=== PATIENT | male | born 1965 | race African-American/Black ===

== ENCOUNTER 2017-06-25 14:01 | Inpatient (IN) | payer OTHER ==
[~2017-06-25] VITALS: Ht 182.9 cm; Wt 118.0 kg
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
[2017-06-25] MEDS ORDERED: hydrALAzine 20 MG INJ IV ONE (16:00)
[2017-06-25 16:26] LABS: BASOPHIL # 0.1 10^3/ul (0.0-0.1); BASOPHILS % 0.4 % (0.0-2.0); EOSINOPHILS # 0.2 10^3/ul (0.0-0.5); EOSINOPHILS % 1.1 % (0.0-7.0); HEMATOCRIT 45.2 % (42.0-52.0); HEMOGLOBIN 15.9 g/dl (14.0-18.0); LYMPHOCYTES # 1.2 10^3/ul (0.8-2.9); LYMPHOCYTES % 8.8 % (15.0-51.0); MEAN CORPUSCULAR HEMOGLOBIN 30.3 pg (29.0-33.0); MEAN CORPUSCULAR HGB CONC 35.2 g/dl (32.0-37.0); MEAN CORPUSCULAR VOLUME 86.1 fl (82.0-101.0); MEAN PLATELET VOLUME 11.1 fl (7.4-10.4); MONOCYTE # 0.7 10^3/ul (0.3-0.9); MONOCYTES % 5.2 % (0.0-11.0); NEUTROPHIL # 11.8 10^3/ul (1.6-7.5); PLATELET COUNT 305 10^3/UL (140-415); RED BLOOD COUNT 5.25 10^6/ul (4.70-6.10); RED CELL DISTRIBUTION WIDTH 12.9 % (11.5-14.5); WHITE BLOOD COUNT 14.1 10^3/ul (4.8-10.8)
[2017-06-25 16:42] LABS: CALCIUM 9.4 mg/dl (8.4-10.2); CREATININE 1.72 mg/dl (0.61-1.24); POTASSIUM 4.2 mmol/L (3.5-5.1)
[2017-06-25 16:54] LABS: TROPONIN-I 0.089 ng/ml (0.00-0.12)
[2017-06-25] MEDS ORDERED: NICARDipine HCL 30 MG CAPSULE PO ONE (17:30)
[2017-06-25] MEDS ORDERED: HYDR25TA6 PO (17:57)
[2017-06-25] MEDS ORDERED: ACETAMINOPHEN 325 MG TAB PO PRN ×2 (19:30→22:30)
[2017-06-25] MEDS ORDERED: ONDANSETRON 4 MG INJ IV PRN ×2 (19:30→22:30)
[2017-06-25] MEDS ORDERED: LORAZEPAM 2 MG INJ IV ONE (19:30)
[2017-06-25 20:01] LABS: AADO2 Arterial 45.5 mmHg (7.0-24.0); Allen Test ACCEPTAB; Arterial Base Excess -0.8 mmol/L (-3.0-3); Arterial COHb 0.3 % (0.0-3.0); Arterial Fraction of Oxyhgb 97.6 % (93.0-99.0); Arterial HCO3 21.3 mmol/L (22.0-26.0); Arterial MetHb 0.2 % (0.0-1.5); Arterial Total Hemglobin 17.2 g/dl (12.0-18.0); MODE NASAL CANNULA
[2017-06-25] MEDS ORDERED: ONDANSETRON 4 MG INJ IV STA (21:12)
[2017-06-25] MEDS ORDERED: LABETALOL HCL 20MG INJ IV ONE (21:30)
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
[2017-06-25] MEDS ORDERED: DOCUSATE SODIUM 100 MG CAP PO PRN (22:30)
[2017-06-25] MEDS ORDERED: BISACODYL (EC) 5 MG TAB PO PRN (22:30)
[2017-06-25] MEDS ORDERED: NACL 0.9% 3 ML SYG IV SCH (22:30)
[2017-06-25] MEDS ORDERED: hydrALAzine 20 MG INJ IV PRN (22:30)
[2017-06-26] VITALS (12 sets, daily range): BP systolic 153–168; BP diastolic 94–105; PULSE 84–150; RESP 18–20; TEMP 98; Ht 182.9 cm; Wt 118.0 kg
[2017-06-26] MEDS: SOD CHLORIDE 0.9% 1,000 ML IV SCH ×3 (00:04→14:56)
[2017-06-26 00:15] LABS: ALBUMIN 4.6 g/dl (3.3-4.9); CREATININE 1.76 mg/dl (0.61-1.24); PHOSPHORUS 3.6 mg/dl (2.5-4.9); POTASSIUM 4.3 mmol/L (3.5-5.1)
[2017-06-26] MEDS ORDERED: METOPROLOL 5 MG INJ IV ONE (02:00)
[2017-06-26] MEDS ORDERED: KETOROLAC 30 MG INJ IV STA (04:01)
[2017-06-26] MEDS ORDERED: ALBUTEROL/IPRATROPIUM (NEB) 3 ML AMP HHN PRN (07:30)
[2017-06-26 07:40] LABS: BASOPHILS % 0.3 % (0.0-2.0); EOSINOPHILS # 0.1 10^3/ul (0.0-0.5); HEMATOCRIT 42.3 % (42.0-52.0); HEMOGLOBIN 14.8 g/dl (14.0-18.0); LYMPHOCYTES # 2.1 10^3/ul (0.8-2.9); LYMPHOCYTES % 14.6 % (15.0-51.0); MEAN CORPUSCULAR HEMOGLOBIN 30.2 pg (29.0-33.0); MEAN CORPUSCULAR VOLUME 86.3 fl (82.0-101.0); MEAN PLATELET VOLUME 11.6 fl (7.4-10.4); MONOCYTES % 6.9 % (0.0-11.0); NEUTROPHIL # 11.1 10^3/ul (1.6-7.5); NEUTROPHILS % 76.6 % (39.0-77.0); PLATELET COUNT 287 10^3/UL (140-415); RED CELL DISTRIBUTION WIDTH 13.1 % (11.5-14.5); WHITE BLOOD COUNT 14.4 10^3/ul (4.8-10.8)
[2017-06-26 08:13] LABS: ALBUMIN 4.1 g/dl (3.3-4.9); ALBUMIN/GLOBULIN RATIO 1.13; BILIRUBIN,INDIRECT 0.7 mg/dl (0-1.1); BILIRUBIN,TOTAL 0.7 mg/dl (0.2-1.3); CALCIUM 9.5 mg/dl (8.4-10.2); CHOL/HDL RATIO 5.3 RATIO; CREATININE 1.57 mg/dl (0.61-1.24); MAGNESIUM 1.7 mg/dl (1.7-2.5); POTASSIUM 4.1 mmol/L (3.5-5.1); TOTAL PROTEIN 7.7 g/dl (6.1-8.1)
[2017-06-26 08:39] LABS: THYROID STIMULATING HORMONE 1.4 MIU/L (0.465-4.680)
--- NOTE | 2017-06-26 09:26 | RADRPT ---
PROCEDURE: XR Chest. CLINICAL INDICATION: Shortness of breath. TECHNIQUE: PA and lateral chest x-ray. COMPARISON: 06/25/2017 FINDINGS: The lungs are clear. The cardiomediastinal silhouette is unremarkable. The osseous structures are u nremarkable. IMPRESSION: 1. No acute cardiopulmonary disease. RPTAT: QQ .Fran Greco MD, MD Date Time Electronically viewed and signed by .Fran Greco MD, MD on 06/26/2017 09:26 .L/
--- NOTE | 2017-06-26 13:24 | PN ---
Date/Time of Note Date/Time of Note DATE: 06/26/17 TIME: 13:21 Assessment/Plan VTE Prophylaxis VTE Prophylaxis Intervention: heparin Lines/Catheters IV [facility]ter [facility] (from [facility]): Saline Lock Assessment/Plan Problems: (1) Essential hypertension Status: Chronic Comment: Patient describes that his last physical he was advised that his blood pressure was a little bit high. I actually believe he would be best off under treatment for hypertension. The choice of which medication is the major question. Given the had of 3 beat run of nonsustained VT, I feel beta-raman would be appropriate first step. Get that started before we allow him to be discharged also we need to look into his renal function (2) AIYANA (acute kidney injury) Status: Acute Comment: His serum creatinine is improving steadily. I am going to do a postvoid residual to make sure he does not have any type of an obstructive uropathy to add to the issues for him. (3) Nonsustained ventricular tachycardia Status: Acute Comment: Noted. Him and check magnesium levels (4) Hyperlipidemia Status: Chronic Comment: He denies knowing of this in the past. I have counseled him also not emergency to get treated for this if he was a family member of mine I would put him on a statin treatment as prophylactic therapy Qualifiers: Hyperlipidemia type: pure hypercholesterolemia Qualified Code: E78.00 - Pure hypercholesterolemia (5) Obesity (BMI 30-39.9) Status: Chronic Comment: Counseled Subjective 24 Hr Interval Summary Free Text/Dictation Patient reports he is feeling relatively well and is without pain. Constitutional: no complaints (No fevers chills or sweats) Respiratory: no complaints Cardiovascular: no complaints (Denies chest pain or palpitations; see assessment and plan) Gastrointestinal: no complaints Genitourinary: no complaints Exam/Review of Systems Vital Signs Vitals Vital Signs Date Time Temp Pulse Resp B/P Pulse Ox O2 Delivery O2 Flow Rate FiO2 06/26/17 12:06 84 06/26/17 08:25 98.0 19 166/105 94 06/26/17 04:00 Room Air 2.0 Nasal Cannula Exam Charming and dignified -Greek male lying in bed Constitutional: alert, oriented Neck: non-tender, supple Respiratory: clear to auscultation, normal air movement Cardiovascular: nl pulses, regular rate and rhythm Results Result Diagram: 06/26/17 0657 06/26/17 0657 Results 24 hrs Laboratory Tests Test 06/25/17 16:05 06/25/17 16:35 06/25/17 19:14 06/26/17 06:57 White Blood Count 14.1 H 14.4 H Red Blood Count 5.25 4.90 Hemoglobin 15.9 14.8 Hematocrit 45.2 42.3 Mean Corpuscular Volume 86.1 86.3 Mean Corpuscular Hemoglobin 30.3 30.2 Mean Corpuscular Hemoglobin Concent 35.2 35.0 Red Cell Distribution Width 12.9 13.1 Platelet Count 305 287 Mean Platelet Volume 11.1 H 11.6 H Neutrophils % 84.0 H 76.6 Lymphocytes % 8.8 L 14.6 L Monocytes % 5.2 6.9 Eosinophils % 1.1 1.0 Basophils % 0.4 0.3 Nucleated Red Blood Cells % 0.0 0.0 Neutrophils # 11.8 H 11.1 H Lymphocytes # 1.2 2.1 Monocytes # 0.7 1.0 H Eosinophils # 0.2 0.1 Basophils # 0.1 0.0 Nucleated Red Blood Cells # 0.0 0.0 Sodium Level 142 143 142 Potassium Level 4.2 4.3 4.1 Chloride Level 105 105 105 Carbon Dioxide Level 25 22 26 Anion Gap 16 20 H 15 Blood Urea Nitrogen 19 20 13 Creatinine 1.72 H 1.76 H 1.57 H Glucose Level 92 92 116 Calcium Level 9.4 10.0 9.5 Troponin I 0.089 Phosphorus Level 3.6 Creatine Kinase 292 H Albumin 4.6 4.1 Blood Gas Specimen Source Blood arterial Arterial Blood Date Drawn 06/25/2017 7:48:47 PM Arterial Blood pH (Temp corrected) 7.476 H Arterial Blood pCO2 (Temp correct) 29.5 L Arterial Blood pO2 (Temp corrected) 112.1 H Arterial Blood HCO3 21.3 L Arterial Blood Base Excess -0.8 Arterial Blood Oxygen Saturation 98.1 H Steve Test ACCEPTAB Arterial Blood Gas Puncture Site Right Radial Arterial Blood Carboxyhemoglobin 0.3 Arterial Blood Methemoglobin 0.2 Blood Gas A-a O2 Differential 45.5 H Oxyhemoglobin Percent 97.6 Total Hemoglobin 17.2 Blood Gas Temperature 37.0 Blood Gas Modality NASAL CANNULA FiO2 27.0 Blood Gas Notified Whom AA Blood Gas Notified Time 06/25/2017 8:00:45 PM Hemoglobin A1c 5.5 Magnesium Level 1.7 Total Bilirubin 0.7 Direct Bilirubin 0.00 Indirect Bilirubin 0.7 Aspartate Amino Transf (AST/SGOT) 78 H Alanine Aminotransferase (ALT/SGPT) 58 Alkaline Phosphatase 68 Total Protein 7.7 Globulin 3.60 H Albumin/Globulin Ratio 1.13 Triglycerides Level 79 Cholesterol Level 232 H LDL Cholesterol, Calculated 173 HDL Cholesterol 43 Cholesterol/HDL Ratio 5.3 Thyroid Stimulating Hormone (TSH) 1.400 Medications Medications Current Medications Sodium Chloride (NS) 1,000 ml @ 100 mls/hr Q10H IV Last administered on 00:04; Admin Dose 100 MLS/HR; Start 06/25/17 at 22:06 Ondansetron HCl (Zofran Inj) 4 mg Q6H PRN IV NAUSEA AND/OR VOMITING; Start at 22:30 Acetaminophen (Tylenol Tab) 650 mg Q6H PRN PO PAIN LEVEL 1-3 OR FEVER; Start 06/25/17 at 22:30 Docusate Sodium (Colace) 100 mg Q12H PRN PO CONSTIPATION; Start 06/25/17 at 22 :30 Bisacodyl (Dulcolax) 5 mg DAILY PRN PO CONSTIPATION; Start 06/25/17 at 22:30 Hydralazine HCl (Apresoline) 10 mg Q6H PRN IV ELEVATED BLOOD PRESSURE Last administered on 06/26/17 00:35; Admin Dose 10 MG; Start 06/25/17 at 22:30 JULIAN AHN MD Jun 26, 2017 13:24
[2017-06-26] MEDS ORDERED: METOPROLOL (XL) 50 MG TAB PO ONE (13:30)
[2017-06-26] MEDS ORDERED: MAGNESIUM SULFATE 4 GM/100 ML 100 ML IVPB ONE (14:30)
[2017-06-27] VITALS (7 sets, daily range): BP systolic 161–165; BP diastolic 100–107; PULSE 60–66; RESP 20
[2017-06-27] MEDS: SOD CHLORIDE 0.9% 1,000 ML IV SCH (04:06)
[2017-06-27 08:34] LABS: BASOPHILS % 0.4 % (0.0-2.0); EOSINOPHILS # 0.4 10^3/ul (0.0-0.5); EOSINOPHILS % 3.4 % (0.0-7.0); HEMATOCRIT 43.1 % (42.0-52.0); HEMOGLOBIN 14.9 g/dl (14.0-18.0); LYMPHOCYTES # 2.1 10^3/ul (0.8-2.9); LYMPHOCYTES % 19.8 % (15.0-51.0); MEAN CORPUSCULAR HGB CONC 34.6 g/dl (32.0-37.0); MEAN CORPUSCULAR VOLUME 86.9 fl (82.0-101.0); MEAN PLATELET VOLUME 11.3 fl (7.4-10.4); MONOCYTE # 0.8 10^3/ul (0.3-0.9); MONOCYTES % 7.1 % (0.0-11.0); NEUTROPHIL # 7.3 10^3/ul (1.6-7.5); NEUTROPHILS % 68.8 % (39.0-77.0); PLATELET COUNT 275 10^3/UL (140-415); RED BLOOD COUNT 4.96 10^6/ul (4.70-6.10); RED CELL DISTRIBUTION WIDTH 13.2 % (11.5-14.5); WHITE BLOOD COUNT 10.5 10^3/ul (4.8-10.8)
[2017-06-27] MEDS ORDERED: METOPROLOL (XL) 50 MG TAB PO SCH (09:00)
[2017-06-27 09:04] LABS: ALBUMIN 3.8 g/dl (3.3-4.9); ALBUMIN/GLOBULIN RATIO 1.02; BILIRUBIN,INDIRECT 0.8 mg/dl (0-1.1); BILIRUBIN,TOTAL 0.8 mg/dl (0.2-1.3); CREATININE 1.38 mg/dl (0.61-1.24); POTASSIUM 4.4 mmol/L (3.5-5.1); TOTAL PROTEIN 7.5 g/dl (6.1-8.1)
[2017-06-27] MEDS ORDERED: HYDR25TA6 PO (15:38)
[2017-06-27] MEDS ORDERED: METO-319 PO (15:38)
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
== END 2017-06-27 18:39 | disposition home or self-care (01) | DRG 206 ==
LOC: E/R 14:01 → MS4 19:27
PROVIDERS: ADMIT Family Medicine; ATTEND Family Medicine
DX: J70.5 Respiratory conditions due to smoke inhalation (principal); I47.2 Ventricular tachycardia; N17.9 Acute kidney failure, unspecified; R06.02 Shortness of breath; R03.0 Elevated blood-pressure reading, without diagnosis of hypertension; D72.829 Elevated white blood cell count, unspecified; E66.9 Obesity, unspecified; Z68.35 Body mass index [BMI] 35.0-35.9, adult; F17.290 Nicotine dependence, other tobacco product, uncomplicated; E78.5 Hyperlipidemia, unspecified
CPT/HCPCS: 36600; 71010; 71020; 80048; 80053; 80061; 80069; 82550; 82803; 83036; 83735; 84443; 84484; 85025; 93005; 96374; 96375; 96376; J0360; J1885; J2060; J2405; J7030